=== PATIENT | male | born 1940 | race Caucasian/White ===

== ENCOUNTER 2021-05-29 08:29 | Emergency (ER) | payer MEDICARE, SELFPAY ==
[2021-05-29] VITALS (10 sets, daily range): BP systolic 100–144; BP diastolic 69–86; PULSE 85–131; RESP 16–20; TEMP 36.6–36.9; O2SAT 96–100; BMI 31.0
--- NOTE | 2021-05-29 | MR_ITS ---
PROCEDURE INFORMATION: Exam: MR Lumbar Spine Without Contrast Exam date and time: 05/29/2021 12:34 PM Age: 80 years old Clinical indication: Other: Urinary and fecal incontinence; Additional info: Incontinence, right leg numbness TECHNIQUE: Imaging protocol: Multiplanar magnetic resonance images of the lumbar spine without intravenous contrast. COMPARISON: CR XR KUB 05/29/2021 9:08 AM FINDINGS: Vertebrae: There may be a transitional vertebral segment. The last mobile appearing disc space will be labeled L5-S1 but may actually represent S1-S2. There is disc space narrowing at L4-L5 and L5-S1 levels. Normal alignment. No compression fracture in the lumbar spine. Diffuse degenerative facet arthropathy. Spinal cord: The conus medullaris is normal appearance at the T12-L1 level. No abnormal signal is seen in the distal thoracic spinal cord. T11-T12: No significant spinal canal stenosis or neural foraminal narrowing. T12-L1: No significant spinal canal stenosis or neural foraminal narrowing. L1-L2: No significant spinal canal stenosis or neural foraminal narrowing. L2-L3: No significant spinal canal stenosis or neural foraminal narrowing. L3-L4: Moderate spinal canal stenosis due to a combination ligamentum flavum hypertrophy and a synovial cyst emanating from the medial aspect of the left facet joint series 8, images 24, 25, series 3, image 9. It compresses the left posterior aspect of the thecal sac without apparent compression of the nerve roots within the thecal sac. No significant neural foraminal narrowing. L4-L5: No significant spinal canal stenosis or neural foraminal narrowing. L5-S1: This level is incompletely imaged in the axial plane likely since there is a transitional vertebral segment. No significant spinal canal stenosis or neural foraminal narrowing. Soft tissues: There appears to be edema and both renal fossae, series 8, images 1-20. IMPRESSION: 1. No evidence of neural compromise. No significant compression of the thecal sac or conus medullaris/distal thoracic spinal cord to explain the patient's symptoms. 2. There does appear to be bilateral perinephric edema.
--- NOTE | 2021-05-29 08:50 | PC.NURSE ---
ED MD at
--- NOTE | 2021-05-29 09:01 | PC.NURSE ---
1400cc urine return from art
--- NOTE | 2021-05-29 09:03 | XR_ITS ---
FINAL REPORT CLINICAL HISTORY: Constipation, acute urinary retention FINDINGS: There are faceted densities in the right upper quadrant measuring up to 2.5 cm consistent with gallstones. There is a 7 mm density in the lower pole of the right kidney consistent with a renal stone. Gas and stool is seen throughout the abdomen. There are 2 adjacent densities in the right hemipelvis measuring up to 6 mm. Cannot exclude the possibility of right ureteral stones. IMPRESSION: Gallstones. Right renal stone. Questionable distal right ureteral stones. Reviewed, Interpreted and Dictated by Pascual Gallardo MD Transcribed by Chauncey Vaughn Authenticated by Pascual Gallardo MD on 05/29/2021 10:41:33 AM [facility]
[2021-05-29 09:06] LABS: Microscopic, Urine URINE MICROSCOPIC (MICROSCOPIC)
--- NOTE | 2021-05-29 09:06 | PC.NURSE ---
ED MD at
[2021-05-29 09:09] LABS: Appearance,Urine CLEAR (Clear); Blood, Urine 1+ (Negative); Color,Urine YELLOW (Yellow); Glucose,Urine (UA) Negative (Negative); Ketones,Urine 1+ (Negative); Leukocyte Esterase,Urine Negative (Negative); Nitrate,Urine Negative (Negative); PH,Urine 5.5 (5.0-8.5); Protein,Urine Negative (Negative); Specific Gravity, Urine 1.025 (1.005-1.030); Urobilinogen,Urine 0.2 EU/dl (0.2)
[2021-05-29 09:10] LABS: Basophils # 0.2 K/mm3 (0-0.2); Basophils % 1.7 % (0.1-2.0); Eosinophils # 0.1 K/mm3 (0.0-0.4); Eosinophils % 0.7 % (0.1-12.0); Hematocrit 50.3 % (42.0-52.0); Hemoglobin 16.6 g/dL (14.1-18.0); Lymphocytes # 0.9 K/mm3 (0.7-4.5); Lymphocytes % 7.7 % (10-50); Mean Corpuscular HGB Conc 32.9 g/dL (31.8-35.4); Mean Corpuscular Hemoglobin 31.3 pg (27.0-31.2); Mean Platelet Volume 8.3 fl (7.4-10.4); Monocytes # 1.2 K/mm3 (0.1-1.0); Monocytes % 9.6 % (1.7-9.3); Neutrophils # 9.7 K/mm3 (1.8-7.8); Neutrophils % 80.3 % (37.0-80.0); Platelet Count 267 K/mm3 (142-424); Red Blood Count 5.29 M/mm3 (4.60-6.20); Red Cell Distribution Width 13.8 % (11.5-17.5); White Blood Count 12.1 K/mm3 (4.8-10.8)
[2021-05-29 09:25] LABS: Bilirubin,Urine 1+ (Negative)
[2021-05-29 09:26] LABS: Bacteria,Urine 1+ /lpf; Squamous Epithelial Cell,Urine Occasional #/hpf (0-5); WBC,Urine Occasional #/hpf (0-3)
[2021-05-29 10:00] LABS: Chloride 106 mmol/L (98-107); Potassium 4.1 mmoL/L (3.5-5.1); Sodium 137 mmol/L (136-145)
[2021-05-29 10:02] LABS: Alanine Aminotransferase 37 U/L (12-78); Aspartate Amino Transferase 49 U/L (17-59); Blood Urea Nitrogen 33 mg/dl (9-20); Creatinine Clearance Estimated 63 mL/min (50-200); Estimated Glomerular Filt Rate 53 ml/min (>60); GFR (African American) 65 ML/MIN (>60)
[2021-05-29 10:03] LABS: Albumin Level 4.1 g/dl (3.5-5.0); Albumin/Globulin Ratio 1.3 (1.1-1.8); Alkaline Phosphatase 113 U/L (38-126); Anion Gap 20.1 mEq/L (5-15); Bilirubin,Total 1.5 mg/dl (0.2-1.3); Calcium 9.3 mg/dl (8.4-10.2); Carbon Dioxide 15 mmol/L (22.0-30.0); Globulin 3.2 g/dL (1.3-3.2); Glucose 122 mg/dl (74-100); Total Protein,Serum 7.3 g/dl (6.3-8.2)
--- NOTE | 2021-05-29 10:12 | PC.NURSE ---
ED MD at for update on POC
--- NOTE | 2021-05-29 10:18 | PC.NURSE ---
CALLED MRI FOR POSSIBLE TEST TODAY. OK, IT MAY BE AT 12PM TODAY.
--- NOTE | 2021-05-29 12:06 | HMH.EDGENADL ---
ED Disposition Clinical Impression: Acute urinary retention Atrial fibrillation Qualifiers: Atrial fibrillation type: paroxysmal Qualified Code(s): I48.0 - Paroxysmal atrial fibrillation Disposition: Left Against Medical Advice Condition on Discharge: Serious Instructions: DI for Acute Abdominal Pain Referrals: Jamari Valadez [Primary Care Provider] - Karthikeyan Crane MD [Staff Physician] - - Critical Care Critical Care Time: No Attestation: On 05/29/21, the high probability of a clinically significant, sudden or life threatening deterioration of the following system(s) required my full and direct attention, intervention and personal management. The time I documented below is in addition to time spent performing reported procedures but includes the following listed in this critical care notation. Medical Decision Making - Medical Records Medical records reviewed: Yes: I reviewed the patient's medical records. - Errol Inquiry Pt receiving controlled substance: No Vital Signs: 05/29/21 08:30 05/29/21 09:38 05/29/21 09:43 Temperature 98.5 F Temperature Source Oral Pulse Rate 97 H 99 H Pulse Rate [Radial] 131 H Respiratory Rate 20 18 Blood Pressure 123/69 123/69 Blood Pressure [Right Arm] 100/78 L Blood Pressure Mean 78 Blood Pressure Mean [Right Arm] 85 Blood Pressure Position [Right Arm] Sitting 02 Sat by Pulse Oximetry 98 96 100 Oxygen Delivery Method Room Air 05/29/21 10:00 05/29/21 10:30 05/29/21 11:00 Temperature Temperature Source Pulse Rate 93 H 93 H 92 H Pulse Rate [Radial] Respiratory Rate 18 18 18 Blood Pressure 132/72 129/75 144/80 H Blood Pressure [Right Arm] Blood Pressure Mean 89 87 101 Blood Pressure Mean [Right Arm] Blood Pressure Position [Right Arm] 02 Sat by Pulse Oximetry 97 98 99 Oxygen Delivery Method 05/29/21 11:30 05/29/21 11:46 05/29/21 12:00 Temperature Temperature Source Pulse Rate 91 H 85 90 Pulse Rate [Radial] Respiratory Rate 18 18 Blood Pressure 140/81 140/81 141/86 H Blood Pressure [Right Arm] Blood Pressure Mean 100 103 Blood Pressure Mean [Right Arm] Blood Pressure Position [Right Arm] 02 Sat by Pulse Oximetry 98 98 99 Oxygen Delivery Method Room Air - Lab Data Lab Results 05/29/21 08:55: WBC 12.1 H, RBC 5.29, Hgb 16.6, Hct 50.3, MCV 95.0 H, MCH 31.3 H, MCHC 32.9, RDW 13.8, Plt Count 267, MPV 8.3, Neut % (Auto) 80.3 H, Lymph % (Auto) 7.7 L, [place] % (Auto) 9.6 H, Eos % (Auto) 0.7, Baso % (Auto) 1.7, Neut # (Auto) 9.7 H, Lymph # (Auto) 0.9, [place] # (Auto) 1.2 H, Eos # (Auto) 0.1, Baso # (Auto) 0.2 05/29/21 08:55: Sodium 137, Potassium 4.1, Chloride 106, Carbon Dioxide 15 L, Anion Gap 20.1 H, BUN 33 H, Creatinine 1.30 H, Estimated Creat Clear 63, Estimated GFR 53 L, Est GFR ( Amer) 65, Glucose 122 H, Calcium 9.3, Total Bilirubin 1.5 H, AST 49, ALT 37, Alkaline Phosphatase 113, Total Protein 7.3, Albumin 4.1, Globulin 3.2, Albumin/Globulin Ratio 1.3 05/29/21 08:55: Urine Color Yellow, Urine Appearance Clear, Urine pH 5.5, Ur Specific [place] 1.025, Urine Protein Negative, Urine Glucose (UA) Negative, Urine Ketones 1+, Urine Blood 1+, Urine Nitrate Negative, Urine Bilirubin 1+ A, Urine Urobilinogen 0.2, Ur Leukocyte Esterase Negative, Urine RBC 3-5, Urine WBC Occasional, Ur Squamous Epith Cells Occasional, Urine Bacteria 1+ Result diagrams: 05/29/21 08:55 05/29/21 08:55 Orders (Tests/Meds): ED MEDICATIONS Discontinued Medications Generic Name Dose Route Start Last Admin Trade Name Freq PRN Reason Stop Dose Admin Lactated Ringer's 1,000 mls @ 999 mls/hr 05/29/21 09:15 05/29/21 09:10 Lactated Ringer's 1000 Ml Bag IV 05/29/21 10:15 Not Given .Q1H1M WALE Sodium Chloride 1,000 mls @ 999 mls/hr 05/29/21 10:00 05/29/21 09:30 Sod Chlor 0.9% 1000ml Bag IV 05/29/21 11:00 999 mls/hr .Q1H1M WALE Administration ORDERS Category Date Time Status CT abdomen pelv
--- NOTE | 2021-05-29 12:13 | PC.NURSE ---
PT GOING TO MRI
--- NOTE | 2021-05-29 13:36 | PC.NURSE ---
Patient back from MRI
--- NOTE | 2021-05-29 14:12 | ECG_ITS ---
APPROVED REPORT Exam: Resting ECG HR:157 bpm ECG Measurements Heart Rate 157 AXES QRSd 90 QRS 30 QT 268 T 56 QTc 356 Conclusion ATRIAL FIBRILLATION WITH RAPID VENTRICULAR RESPONSE MODERATE ST DEPRESSION [0.05+ mV ST DEPRESSION] CRITICAL TEST RESULT UNCONFIRMED REPORT Electronically signed by : Geovany Mars MD 05/30/2021 16:37:16
--- NOTE | 2021-05-29 14:15 | PC.NURSE ---
ED MD at for update on POC
--- NOTE | 2021-05-29 14:27 | PC.NURSE ---
WENT IN TO SWAB PT FOR COVID FOR POSSIBLE ADMISSION HE REFUSES TO GET A SWAB AND NOW REFUSES TO HAVE THE CT ABD AND PELVIS HE JUST WANTS TO GO HOME.
--- NOTE | 2021-05-29 14:31 | PC.NURSE ---
DR RODRIGUEZ SPEAKING WITH PT AND HE IS SIGNING OUT AMA
--- NOTE | 2021-05-29 14:41 | HMH.ITSTN ---
went to get patient for scan said he is going home. refused scan, I spoke to ER so he is aware and cancelled order
== END 2021-05-29 15:41 | disposition left against medical advice (07) ==
PROVIDERS: Emergency Provider Student in an Organized Health Care Education/Training Program; PCP Family Medicine
DX: R33.8 Other retention of urine (principal); K59.00 Constipation, unspecified; I48.0 Paroxysmal atrial fibrillation
CPT/HCPCS: 96374; 51702; 72148; 74018; 76376; 80053; 81001; 85025; 93005; 96360; 96361; 96365; 96375; 99284

== ENCOUNTER 2021-05-31 03:59 | Observation (INO) | payer MEDICARE, SELFPAY ==
[2021-05-31] VITALS (23 sets, daily range): BP systolic 60–160; BP diastolic 31–103; PULSE 72–115; RESP 14–20; TEMP 36.3–37.4; O2SAT 91–98; BMI 30.6; BMI 29.8
[2021-05-31 04:36] LABS: Basophils # 0.2 K/mm3 (0-0.2); Basophils % 1.8 % (0.1-2.0); Eosinophils # 0.1 K/mm3 (0.0-0.4); Hematocrit 52.2 % (42.0-52.0); Hemoglobin 16.8 g/dL (14.1-18.0); Lymphocytes # 1.4 K/mm3 (0.7-4.5); Lymphocytes % 13.1 % (10-50); Mean Corpuscular HGB Conc 32.2 g/dL (31.8-35.4); Mean Corpuscular Hemoglobin 30.6 pg (27.0-31.2); Mean Corpuscular Volume 94.8 fl (80-94); Mean Platelet Volume 8.1 fl (7.4-10.4); Neutrophils # 8.2 K/mm3 (1.8-7.8); Neutrophils % 75.1 % (37.0-80.0); Platelet Count 307 K/mm3 (142-424); Red Blood Count 5.51 M/mm3 (4.60-6.20); Red Cell Distribution Width 13.7 % (11.5-17.5); White Blood Count 10.9 K/mm3 (4.8-10.8)
--- NOTE | 2021-05-31 04:48 | HMH.EDGENADL ---
ED Disposition Clinical Impression: Fecal impaction in rectum Disposition: Home, Self-Care Condition on Discharge: Good Instructions: DI for Gastrointestinal Bleeding Referrals: Jamari Valadez [Primary Care Provider] - - Critical Care Critical Care Time: No Attestation: On 05/31/21, the high probability of a clinically significant, sudden or life threatening deterioration of the following system(s) required my full and direct attention, intervention and personal management. The time I documented below is in addition to time spent performing reported procedures but includes the following listed in this critical care notation. Medical Decision Making - Medical Records Medical records reviewed: Yes: I reviewed the patient's medical records. - Errol Inquiry Pt receiving controlled substance: No Vital Signs: 05/31/21 04:00 Temperature 98.6 F Temperature Source Oral Pulse Rate [Left Radial] 115 H Respiratory Rate 18 Blood Pressure [Right Arm] 138/70 Blood Pressure Mean [Right Arm] 92 02 Sat by Pulse Oximetry 97 Oxygen Delivery Method Room Air - Lab Data Lab Results 05/31/21 04:10: WBC 10.9 H, RBC 5.51, Hgb 16.8, Hct 52.2 H, MCV 94.8 H, MCH 30.6, MCHC 32.2, RDW 13.7, Plt Count 307, MPV 8.1, Neut % (Auto) 75.1, Lymph % (Auto) 13.1, [place] % (Auto) 9.0, Eos % (Auto) 1.0, Baso % (Auto) 1.8, Neut # (Auto) 8.2 H, Lymph # (Auto) 1.4, [place] # (Auto) 1.0, Eos # (Auto) 0.1, Baso # (Auto) 0.2 Result diagrams: 05/31/21 04:10 Orders (Tests/Meds): ED MEDICATIONS Discontinued Medications Generic Name Dose Route Start Last Admin Trade Name Freq PRN Reason Stop Dose Admin Hydromorphone HCl 1 mg 05/31/21 07:52 05/31/21 07:54 Hydromorphone 2mg/Ml Syringe IV 05/31/21 07:53 1 mg ONCE ONE Administration Sodium Chloride 1,000 mls @ 999 mls/hr 05/31/21 04:30 05/31/21 04:19 Sod Chlor 0.9% 1000ml Bag IV 05/31/21 05:30 999 mls/hr .Q1H1M WALE Administration Morphine Sulfate 4 mg 05/31/21 04:26 05/31/21 07:53 Morphine 4mg/Ml Syringe IV 05/31/21 04:27 Not Given ONCE ONE ORDERS Category Date Time Status Consult to Surgeon On-Call [Consult to On-Call Gen'l Cons 05/31/21 08:29 Ordered Surgeon] [CONS] Routine Occult Blood,Stool Stat Lab 05/31/21 04:14 Ordered Rapid PCR Covid and Flu A/B Stat Lab 05/31/21 08:28 Ordered Medical Decision Narrative: Patient is a 80-year-old male presents the ED today for further evaluation of rectal pain and rectal bleeding. Patient is well-appearing on initial evaluation, no acute change from yesterday, slight tachycardia on the monitor. Will obtain CBC, CMP, patient will need an attempt at rectal disimpaction. I was concerned at the end the patient states yesterday that he could have rectal cancer contributing to his presentation, as he has not had colonoscopies in his family members with rectal cancer. We have again discussed today the opportunity to get a CT scan, patient is declining this at this time. We will attempt rectal disimpaction, and is successful recommend colonoscopy outpatient. Have attempted fecal disimpaction manually twice, also discussed the case with Dr. Spangler with surgery, as we have concern that the sphincter or rectal impaction is not able to be sought by us here in the emergency department, have also tried 2 enemas, his advice was to attempt a Redman insertion past the stone blockage and insert saline in that area, we attempted this with a soapsuds enema, or able to instill approximately fluid behind the stool ball, with successful Redman placement, and patient attempted to go to bathroom again after this and was unable to pass it, gave patient 1 mg of IV Dilaudid for this in order to facilitate this painful procedure. Given refractory and multiple rectal exams, patient will likely need endoscopy for resolution of this, I have admitted the patient to Dr. Rawls for inpatient evaluation and further monitoring. General Adult HPI
--- NOTE | 2021-05-31 06:21 | PC.NURSE ---
Dr. Barry paged for ED
--- NOTE | 2021-05-31 06:21 | PC.NURSE ---
ED doctor on phone with Dr. Barry
--- NOTE | 2021-05-31 07:50 | PC.NURSE ---
per er md, surgeon internal communications manager requests soap suds enema
--- NOTE | 2021-05-31 08:39 | PC.NURSE ---
archie swabbed at [phone] by verito brown
--- NOTE | 2021-05-31 08:51 | PC.NURSE ---
notified Dr. Barry that pt is being admitted and disimpaction was not successful Dr. Barry stated to keep pt NPO and he would further assess pt.
[2021-05-31 08:54] LABS: Influenza B, PCR Not Detected (NotDetected)
[2021-05-31 08:56] LABS: Coronavirus 19, PCR Not Detected (NotDetected); Influenza A, PCR Not Detected (NotDetected)
--- NOTE | 2021-05-31 10:12 | PC.NURSE ---
pt to med-surg via stretchver[facility]
--- NOTE | 2021-05-31 10:47 | HMH.PHAVTE ---
[facility] Pharmacy VTE Monitoring - Patient Demographics Admission date: 05/31/21 Report Date: 05/31/21 Time: 10:47 Allergies/Adverse Reactions: Patient Allergies No Known Allergies Allergy (Verified 01/31/19 13:58) Height: 1.77 m Weight: 93.071 kg Patient Problems: Current Active Problems Fecal impaction in rectum (Acute) - VTE Risk Labs: VTE Related Lab Results Hgb 16.8 g/dL (14.1-18.0) 05/31/21 04:10 Hct 52.2 % (42.0-52.0) H 05/31/21 04:10 Plt Count 307 K/mm3 (142-424) 05/31/21 04:10 VTE Score: 0 VTE Risk Level: Very Low Risk - Prophylaxis VTE Prophylaxis Ordered?: Yes Types of VTE Prophylaxis: TEDS Knee High Location of Applied Device: Bilateral Lower Extremeties
--- NOTE | 2021-05-31 11:09 | PC.NURSE ---
down to or
--- NOTE | 2021-05-31 11:12 | P.PN_ITS ---
[facility] Anesthesia Checklist - Patient Identification Patient Identification: Arm Band - Structural Data Admitted From: Inpatient Planned Operative Procedure/s: Colonoscopy for fecal impaction Consent for Planned Operative Procedure(s) Verified: Yes - NPO Status Verified Time NPO: 03:30 (water) - Airway Assessment C-Spine Mobility Assessed: Yes TMJ Mobility Assessed: Yes Dentition: Edentulous - Neurological Assessment Level of Consciousness: Awake Hx Seizures: No Numbness or tingling in extremities: No - Anesthesia Plan Anesthesia Risk discussed: Yes Anesthesia Plan: Verified ASA Class: II Anesthesia Type: MAC [facility] History I have reviewed the patient's past medical history: Yes Medical History: Denies:: Cancer, Diabetes Mellitus Type 1, Diabetes Mellitus Type 2, MRSA *Have you ever received a pneumonia vaccine?: Yes *Have you received a flu vaccine this season?: No Anesthesia experience/problems:: None Laterality Cases: Left: Partial Knee Replacement Other Surgeries: Yes: Appendectomy Amputation: No - *Social History Last grade of school completed: Advanced degree Smoking Status: Former smoker Tobacco Type: cigarettes # Packs/Day (cigarettes): 1 #Yrs smoked (if former smoker): 16 Smoking End Date: 46 years ago Alcohol Intake: never Alcohol Intake Frequency:: other Substance Use Type: denies use *Occupational Status:: retired Housing: house Household Members: none *Travel in the last 8 weeks: None Family Hx:: Cancer
--- NOTE | 2021-05-31 11:51 | HMH.GSCON ---
*Admission Date: 05/31/21 *Reason for consult:: Fecal impaction *History of present illness: This is a 80-year-old gentleman who presented to the emergency department with vague abdominal pain and intermittent blood per rectum. Evaluation revealed changes consistent with fecal impaction. Disimpaction was attempted. Even with sedation the patient was unable to tolerate further efforts. The surgical service was consulted for endoscopic evaluation and possible disimpaction with anesthesia. Review of Systems - ENT Denies difficulty swallowing - *Gastrointestinal Reports abdominal pain, Reports bright, red blood in stools [facility] History Medical History: Denies:: Cancer, Diabetes Mellitus Type 1, Diabetes Mellitus Type 2, MRSA, Seizures *Have you ever received a pneumonia vaccine?: Yes *Have you received a flu vaccine this season?: No Anesthesia experience/problems:: None Laterality Cases: Left: Partial Knee Replacement Other Surgeries: Yes: Appendectomy Amputation: No - *Social History Last grade of school completed: Advanced degree Smoking Status: Former smoker Tobacco Type: cigarettes # Packs/Day (cigarettes): 1 #Yrs smoked (if former smoker): 16 Smoking End Date: 46 years ago Alcohol Intake: never Alcohol Intake Frequency:: other Substance Use Type: denies use *Occupational Status:: retired Housing: house Household Members: none *Travel in the last 8 weeks: None Family Hx:: Cancer Meds Home Medications Medication Instructions Recorded Confirmed Type No Known Home Medications 05/31/21 05/31/21 History Allergies Allergy/AdvReac Type Severity Reaction Status Date / Time No Known Allergies Allergy Verified 01/31/19 13:58 Exam Vital signs and Labs for Last 24 Hours: Temp Pulse Resp BP Pulse Ox 98 F 102 H 20 151/80 H 98 05/31/21 10:10 05/31/21 10:10 05/31/21 10:10 05/31/21 10:10 05/31/21 10:05 Laboratory Results - last 24 hr 05/31/21 04:10: WBC 10.9 H, RBC 5.51, Hgb 16.8, Hct 52.2 H, MCV 94.8 H, MCH 30.6, MCHC 32.2, RDW 13.7, Plt Count 307, MPV 8.1, Neut % (Auto) 75.1, Lymph % (Auto) 13.1, [place] % (Auto) 9.0, Eos % (Auto) 1.0, Baso % (Auto) 1.8, Neut # (Auto) 8.2 H, Lymph # (Auto) 1.4, [place] # (Auto) 1.0, Eos # (Auto) 0.1, Baso # (Auto) 0.2 05/31/21 08:54: SARS-CoV-2 (PCR) Not detected, Influenza A Untype (PCR) Not detected, Influenza Type B (PCR) Not detected I & O for Last 24 hours: Intake & Output 05/28/21 05/29/21 05/30/21 05/31/21 11:59 11:59 11:59 11:59 Weight 205 lb 3 oz - Constitutional no acute distress - *Routine Respiratory Exam Absent: respiratory distress - *Routine Abdominal Exam Present: soft - *Routine Rectal Exam Comments: Examination deferred. To be performed at time of endoscopic evaluation. Results - Labs 05/31/21 04:10 Laboratory Results - last 24 hr 05/31/21 04:10: WBC 10.9 H, RBC 5.51, Hgb 16.8, Hct 52.2 H, MCV 94.8 H, MCH 30.6, MCHC 32.2, RDW 13.7, Plt Count 307, MPV 8.1, Neut % (Auto) 75.1, Lymph % (Auto) 13.1, [place] % (Auto) 9.0, Eos % (Auto) 1.0, Baso % (Auto) 1.8, Neut # (Auto) 8.2 H, Lymph # (Auto) 1.4, [place] # (Auto) 1.0, Eos # (Auto) 0.1, Baso # (Auto) 0.2 05/31/21 08:54: SARS-CoV-2 (PCR) Not detected, Influenza A Untype (PCR) Not detected, Influenza Type B (PCR) Not detected Assessment and Plan (1) Fecal impaction in rectum Status: Acute Category: Medical Code(s): K56.41 - Fecal impaction Plan endoscopic evaluation and disimpaction under anesthesia. I have discussed the risks and benefits including, but not limited to: Bleeding Infection Damage to surrounding tissue Inherent risks of sedation The patient agrees to proceed.
--- NOTE | 2021-05-31 11:58 | P.PCN_ITS ---
- Procedure: Date: 05/31/21 Patient Date of :: 1940 Procedure Performed:: Proctoscopy with colonoscope Manual fecal disimpaction Indications:: Fecal impaction Performing Provider:: Jordy Barry MD Referring Provider:: Dr. Rawls Sedation:: Monitored anesthesia care Procedure:: After informed consent was obtained the patient was taken to the endoscopy suite. Sedation ensued after the patient was transferred to the left lateral decubitus position. Pulse, blood pressure, and oxygen saturation were monitored throughout the procedure. Digital rectal exam revealed a large amount of foreign body material consistent with ingested food particles within the rectal vault. Manual disimpaction revealed a husk-like material . Extensive manual d isimpaction was completed; however, a significant amount of retained material was not able to be evacuated. No firm stool noted. The colonoscope was placed within the rectal vault. No obvious sign of injury noted. The colonoscope was carefully removed and the patient was transferred to recovery in stable condition. Please see findings and specimens below for detail. Findings:: Extensive husk-like material throughout rectal vault No firm stool palpable Recommendations:: Continue medical management as per primary service. Stool softeners and enemas ordered Complications:: No immediate Estimated blood obtained (mL): 0
--- NOTE | 2021-05-31 12:33 | PC.NURSE ---
patient had art in place on arrival to hospital.
--- NOTE | 2021-05-31 13:06 | HMH.HP ---
*Admission Date: 05/31/21 *Chief complaint: Abdominal Pain *History of present illness: 80-year-old male patient presented to the [facility] urgency department for reports of rectal bleeding. Patient states that he has been constipated and passing watery stool, he states he feels a mass in his rectum that were not not allowing the stomach to pass. He was seen in the emergency room 1 day prior with same complaints and complaints of urinary retention. He reports trying to urinate for several days and unable, Redman catheter was placed and he was to follow-up with urology. He denies a CAT scan of his abdomen yesterday as well as today he will not elaborate on that. 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 He also attempts trying to disimpact himself using his 9 digits but was unsuccessful. General surgery was consulted General Surgery has seen and performed: Proctoscopy with colonoscope Manual fecal disimpaction Procedure:: After informed consent was obtained the patient was taken to the endoscopy suite. Sedation ensued after the patient was transferred to the left lateral decubitus position. Pulse, blood pressure, and oxygen saturation were monitored throughout the procedure. Digital rectal exam revealed a large amount of foreign body material consistent with ingested food particles within the rectal vault. Manual disimpaction revealed a husk-like material . Extensive manual disimpaction was completed; however, a significant amount of retained material was not able to be evacuated. No firm stool noted. The colonoscope was placed within the rectal vault. No obvious sign of injury noted. The colonoscope was carefully removed and the patient was transferred to recovery in stable condition. Please see findings and specimens below for detail. Findings:: Extensive husk-like material throughout rectal vault No firm stool palpable [facility] History I have reviewed the patient's past medical history: Yes Medical History: Denies:: Cancer, Diabetes Mellitus Type 1, Diabetes Mellitus Type 2, MRSA, Seizures *Have you ever received a pneumonia vaccine?: Yes *Have you received a flu vaccine this season?: No Anesthesia experience/problems:: None Laterality Cases: Left: Partial Knee Replacement Other Surgeries: Yes: Appendectomy Amputation: No - *Social History Last grade of school completed: Advanced degree Smoking Status: Former smoker Tobacco Type: cigarettes # Packs/Day (cigarettes): 1 #Yrs smoked (if former smoker): 16 Smoking End Date: 46 years ago Alcohol Intake: never Alcohol Intake Frequency:: other Substance Use Type: denies use *Occupational Status:: retired Housing: house Household Members: none *Travel in the last 8 weeks: None Family Hx:: Cancer Review of Systems - Review of Systems Review of systems:: pertinent systems reviewed and negative unless documented below - Constitutional Denies chills, Denies lack of energy - Eyes Denies blurry vision, Denies double vision - ENT Denies abnormal hearing, Denies poor balance - *Cardiovascular Denies chest pain, Denies shortness of breath - *Respiratory Denies chest congestion, Denies shortness of breath - *Gastrointestinal Reports abdominal pain, Reports change in bowel habits, Reports constipation, Reports loose stools, Denies vomiting blood, Denies bright, red blood in stools - *Musculoskeletal Denies joint pain, Denies muscle cramps - Integumentary/Breasts Denies hair loss, Denies yellowing of the skin - *Neurologic Reports abnormal hearing, Denies localized weakness - Psychiatric Denies lack of enjoyment, Denies anxiety - Endocrine Denies cold intolerance, Denies increased thirst - Hematologic/Lymphatic Denies easy bleeding, Denies easy bruising - Allergic/Immunologic Denies GI upset with certain foods, Denies tongue swelling Meds Home Medications Medic
--- NOTE | 2021-05-31 15:03 | PC.NURSE ---
patient continues to have some bleeding from rectum. has ambulated independently to bathroom. up and down attempting to have bm. some success but not a lot. tolerating clear liquids. rings out as needed. vitals have been stable. no other complaints
--- NOTE | 2021-05-31 20:17 | PC.NURSE ---
This RN found pt putting shoes/coat on. Pt states Im leaving, take this IV out. - 1929 Education on importance to stay given to pt multiple times by this RN. Pt very adamant that he is leaving now. AMA paper signed by pt, IV removed. - 1949 Pt notified he will need to call for a ride due to being sedated in the am. Pt refuses. Pt states I am leaving now and i have a knife in my car. -1953 This RN contacted dispatch at this time - 1954 supervisor tank storage stops pt at ER entrance - 1956 Pt calls son to pick him up. House to sit with pt until son has arrived. - 1958 MD certified indoor environmentalist notified of pt signing out AMA - 2005
--- NOTE | 2021-05-31 21:23 | PC.NURSE ---
Late entry: Pt's son Dago Roth and his picked him up from the ER entrance and drove him and his vehicle home.
--- NOTE | 2021-06-02 12:40 | CARE MANAGER ---
Attempted to contact patient regarding follow from hospital discharge. No Voicemail option. JAIME Mckenna
--- NOTE | 2021-06-11 17:32 | [facility].DCSUM ---
General - General Admission date:: 05/31/21 Discharge date: 05/31/21 HPI HPI: 80-year-old male patient presented to the [facility] urgency department for reports of rectal bleeding. Patient states that he has been constipated and passing watery stool, he states he feels a mass in his rectum that were not not allowing the stomach to pass. He was seen in the emergency room 1 day prior with same complaints and complaints of urinary retention. He reports trying to urinate for several days and unable, Redman catheter was placed and he was to follow-up with urology. He denies a CAT scan of his abdomen yesterday as well as today he will not elaborate on that. 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 He also attempts trying to disimpact himself using his 9 digits but was unsuccessful. General surgery was consulted General Surgery consulted Hospital Course Hospital Course: 80-year-old male patient presented to the [facility] urgency department for reports of rectal bleeding. Patient states that he has been constipated and passing watery stool, he states he feels a mass in his rectum that were not not allowing the stomach to pass. He was seen in the emergency room 1 day prior with same complaints and complaints of urinary retention. He reports trying to urinate for several days and unable, Redman catheter was placed and he was to follow-up with urology. He denies a CAT scan of his abdomen yesterday as well as today he will not elaborate on that. 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 He also attempts trying to disimpact himself using his 9 digits but was unsuccessful. General surgery was consulted General Surgery has seen and performed: Proctoscopy with colonoscope Manual fecal disimpaction Procedure:: After informed consent was obtained the patient was taken to the endoscopy suite. Sedation ensued after the patient was transferred to the left lateral decubitus position. Pulse, blood pressure, and oxygen saturation were monitored throughout the procedure. Digital rectal exam revealed a large amount of foreign body material consistent with ingested food particles within the rectal vault. Manual disimpaction revealed a husk-like material . Extensive manual disimpaction was completed; however, a significant amount of retained material was not able to be evacuated. No firm stool noted. The colonoscope was placed within the rectal vault. No obvious sign of injury noted. The colonoscope was carefully removed and the patient was transferred to recovery in stable condition. Please see findings and specimens below for detail. Findings:: Extensive husk-like material throughout rectal vault No firm stool palpable 1929 patient was found by staff putting his shoes and coat on. Patient stated he was leaving and wanted his IV removed. Staff educated patient on importance of staying and possible medical outcomes multiple times patient still refused to stay. 1949 AMA paperwork was signed, patient then left the floor. 1958. supervisory it specialist met patient in ER lobby and night warehouse selector stayed with patient until his son and [id number] arrived at which time they drove home in his car home Objective Vital signs: Temp Pulse Resp BP Pulse Ox 99.2 F 105 H 18 124/83 98 05/31/21 16:20 05/31/21 16:20 05/31/21 16:20 05/31/21 16:20 05/31/21 16:20 no acute distress - *Routine HEENT Exam Head: Present: normocephalic Eye: Present: EOMI ENT: Present: mucous membranes moist - *Routine Neck Exam Present: trachea midline. Absent: tracheal deviation - *Routine Respiratory Exam Present: CTA bilaterally. Absent: accessory muscle use - *Routine Cardiovascular Exam Present: RRR - *Routine Abdominal Exam Present: soft,
== END 2021-05-31 19:55 | disposition left against medical advice (07) ==
LOC: ER 08:36 → 2ND 09:27
PROVIDERS: Surgery; Admitting Provider Family Medicine; Emergency Provider Student in an Organized Health Care Education/Training Program; PCP Family Medicine; Visit Provider Family Medicine
PROC: 0DJD8ZZ Inspection of Lower Intestinal Tract, Via Natural or Artificial Opening Endoscopic (ICD-10-PCS; CPT 45378; principal; 2021-05-31 11:10)
DX: K56.41 Fecal impaction (principal); Z87.891 Personal history of nicotine dependence; Z96.652 Presence of left artificial knee joint; Z20.822 Contact with and (suspected) exposure to COVID-19; I48.91 Unspecified atrial fibrillation; R33.9 Retention of urine, unspecified
CPT/HCPCS: 45915; G0378; 85025; 96365; 96375; 99285; C9803; J2704; U0003; U0005

== ENCOUNTER → 2021-06-23 15:16 | Outpatient (CLI) | payer MEDICARE, SELFPAY | PROVIDERS: Visit Provider Urology | DX: N20.0 Calculus of kidney (principal); B96.4 Proteus (mirabilis) (morganii) as the cause of diseases classified elsewhere; B96.20 Unspecified Escherichia coli [E. coli] as the cause of diseases classified elsewhere | CPT/HCPCS: 87086; 87088; 87186 ==